=== PATIENT | female | born 1960 | race African-American/Black ===

== ENCOUNTER 2025-04-15 11:45 | Emergency (ER) | payer MEDICARE, MEDICAID, SELFPAY ==
--- NOTE | 2025-04-15 | ECG_ITS ---
Test Reason : DYSPNEA Blood Pressure : */* mmHG Vent. Rate : 83 BPM Atrial Rate : 83 BPM P-R Int : 132 ms QRS Dur : 80 ms QT Int : 360 ms P-R-T Axes : 17 -17 12 degrees QTcB Int : 423 ms Normal sinus rhythm Possible Anterior infarct , age undetermined Abnormal ECG No previous ECGs available Referred By: Generic ED Physician Electronically Signed By: Harvey Dumont
--- NOTE | ~2025-04-15 | CT_ITS ---
CLINICAL HISTORY: Breast CA, chemotherapy, dyspnea --- Additional Notes or Special Instructions: R O PE, pneumonia CT angiography of the chest with IV contrast. 3D/MIP post processing reconstructions were performed. COMPARISON: None provided. FINDINGS: There are no intraluminal filling defects to suggest pulmonary embolism. No evidence of right heart strain. Visualized thyroid is unremarkable. No supraclavicular or axillary lymphadenopathy. Ascending aorta and main pulmonary artery are normal in caliber. No pericardial effusion. Distal esophageal wall thickening.No mediastinal or hilar lymphadenopathy. No pleural effusion. Minimal atelectasis along the posterior lower lobes Trachea and central airways are clear. No significant bronchial wall thickening. No bronchiectasis. Left upper lobe 4 mm pulmonary nodule (series 7, image 49). Right middle lobe 3 mm pulmonary nodule (series 7, image 50). Right upper lobe subpleural 2 mm pulmonary nodule (series 7, image 21). Visualized portions of the upper abdomen are unremarkable. Flowing marginal osteophytes present throughout the thoracic spine. No acute fracture or suspicious bone lesion IMPRESSION: 1. No evidence of pulmonary embolism. 2. No acute intrathoracic findings. No evidence of pneumonia. 3. Diffuse thickening of the mucosa of the esophagus can be seen with esophagitis and gastroesophageal reflux disease. 4. Bilateral pulmonary nodules measuring up to 4 mm in the left upper lobe. Recommend comparison prior imaging if available. This document has been electronically signed by: Jay Jay Yu MD on 04/15/2025 15:42:00
[2025-04-15 11:50] VITALS: BP 108/64; PULSE 90; O2SAT 98
[2025-04-15 12:10] VITALS: BP 112/70; PULSE 86; RESP 24; TEMP 36.6; O2SAT 98; BMI 30.2
[2025-04-15 12:14] LABS: Glucose, Whole Blood 117 mg/dL (60-115)
--- NOTE | 2025-04-15 12:30 | ED.SOB ---
HPI - SOB/Dyspnea General Chief Complaint: Dyspnea Stated Complaint: SOB Time Seen by Provider: 04/15/25 12:30 Source: patient Mode of arrival: EMS Limitations: no limitations History of Present Illness ED Provider: Dr. 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 Patient states that she became short of breath 45 minutes prior to coming to the emergency department. She states she has trouble catching her breath. She denied fever, chills, cough, chest pain, nausea, vomiting, diarrhea, bloody stools, black stools or frequency. She states this is her 1st episode of shortness of breath. I did review a hematology oncology note from [facility] dated 04/02/2025. Diagnosis: Left 03:30 pT1b N0 grade 2 IDC with grade 3 DCIS, ER negative, ME negative, HER2 2+, fish ratio 1.2, copy #4.05 Partial mastectomy Treatment docetaxel and cyclophosphamide q.2 weeks Related Data Allergies Allergy/AdvReac Type Severity Reaction Status Date / Time No Known Allergies Allergy Verified 04/15/25 12:15 Review of Systems Review of Systems: Yes all other systems are reviewed and are negative [facility] Past Medical History [facility] Narrative: Social history: She does smoke cigarettes. She denies alcohol and drug use. Social History Social History Advance Directives: No Advance Directives Information Provided: Yes Physical Exam Vital Signs: Vital Signs: Last Vital Signs Temp 97.9 F 04/15/25 12:10 Pulse 86 04/15/25 12:10 Resp 24 H 04/15/25 12:10 BP 112/70 04/15/25 12:10 Pulse Ox 98 04/15/25 12:10 O2 Del Method Room Air 04/15/25 12:10 BMI result Body Mass Index 30.2 Vital signs revealed an elevated respiratory rate of 24 otherwise unremarkable Exam: General: Awake, tearful, appears dyspneic, answers questions appropriately Head: Normocephalic, atraumatic EENT: PERRL, sclera and conjunctiva are normal, mouth with no erythema or exudates Neck: Supple, no adenopathy Lung: breath sounds symmetric, no wheezing, no rales and no rhonchi Chest: symmetric movement, nontender Heart: regular rate and rhythm, normal S1, S2 no murmurs or rubs Abdomen: soft, non-tender, nondistended, normal bowel sounds Back: no vertebral tenderness, no CVAT Extremities: no deformities, moves all extremities symmetrically, no edema Neuro: Awake, alert, oriented, normal speech, cranial nerves 2-12 intact, moves all extremities symmetrically Psych: Pleasant, cooperative Medications Administered Discontinued Medications Generic Name Dose Route Start Last Admin Trade Name Freq PRN Reason Stop Dose Admin Sodium Chloride 1,000 mls @ 999 mls/hr 04/15/25 13:25 04/15/25 13:27 Ns IV 04/15/25 14:25 999 mls/hr .Q1H1M STA Administration Sodium Chloride 1,000 mls @ 999 mls/hr 04/15/25 13:45 04/15/25 13:37 Ns IV 04/15/25 14:45 999 mls/hr .Q1H1M VERA Administration Piperacillin Sod/Tazobactam 100 mls @ 200 mls/hr 04/15/25 13:41 04/15/25 14:34 Sod 4.5 gm/ Sodium Chloride IV 04/15/25 14:10 Infused ONCE ONE Infusion Iohexol 100 ml 04/15/25 14:02 04/15/25 14:02 Iohexol 350 Mg/Ml 100 Ml Infus..Btl IV 04/15/25 14:03 65 ml ONCE ONE Administration Morphine Sulfate 2 mg 04/15/25 12:39 04/15/25 12:45 Morphine Sulfate 2 Mg/Ml Cartridge IVPUSH 04/15/25 12:40 2 mg ONCE ONE Administration Protocol Ondansetron HCl 4 mg 04/15/25 12:39 04/15/25 12:50 Ondansetron Hcl 4 Mg/2 Ml Vial IVPUSH 04/15/25 12:40 4 mg ONCE ONE Administration Medical Decision Making Medical Decision Making MDM Narrative: 64-year-old female with a history of diabetes mellitus, hyperlipidemia, hyperthyroidism, 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 Patient states that she became short of breath 45 minutes prior to coming to the emergency department. She states she has trouble catching her breath. She denied fever, chills, cough, chest pain, nausea, vomiting, diarrhea, bloody stools, black stools or frequency. She states this is her 1st episode of shortness of breath. Vital signs revealed an elevated respiratory rate otherwise unremarkable. Patient does appear to be dyspneic but her exam is otherwise normal. 13:39 Differential diagnosis: ?Includes but is not limited to pulmonary embolism, pneumonia, cardiomyopathy, congestive heart failure,, leukopenia, anemia, electrolyte abnormalities Course: 13:39 Patient's dyspnea was treated with morphine 2 mg IV and the patient's dyspnea did improve with this treatment.. My independent interpretation patient's laboratory evaluation is as follows: WBC elevated 32,700. Normocytic anemia with an H&H of 10.5 and 30.9. Chloride elevated 112, bicarb low 18. Glucose elevated 124. Alk-phos elevated 124. TSH was normal. Lactic acid elevated 2.2. VBG revealed a pH of 7.50, pCO2 of 31, bicarb 17 consistent with a respiratory alkalosis most likely secondary to the patient's elevated respiratory rate. Given the high WBC count, I will make the patient had code sepsis and the patient was treated with Zosyn 4.5 g IV. It is possible that the elevated WBC may be related to her malignancy or Neupogen injection. She also was ordered to get normal saline 1 L IV. Patient was made a sepsis alert. Patient's dyspnea did improve with morphine 2 mg IV. 16:30 CT pulmonary angiogram PE protocol revealed no PE and no abnormalities in the patient's lung to describe her dyspnea. Patient is feeling significantly better in his back to her baseline. Given the VBG results I suspect that the patient had hyperventilation syndrome and I did discuss this with the patient. I do not think that the patient has an infectious and I suspect that the elevated WBC was due to the Neupogen that she received for her chemotherapy. I did discuss hyperventilation syndrome, anxiety and depression with the patient and I told her that she should discuss getting a therapist with her oncologist to help her cope with her cancer diagnosis in the rest of her chemotherapy treatment. Patient was given printed and verbal instructions and discharged home. Lab Data 04/15/25 13:15 04/15/25 12:25 Labs: Lab Results 04/15/25 04/15/25 04/15/25 Range/Units 12:10 12:24 12:25 WBC (4.8-10.8) X10*3/uL RBC (4.20-5.50) X10*6/uL Hgb (12.0-16.0) g/dl Hct (37.0-47.0) % MCV (80.0-98.0) fL MCH (27.0-33.0) pg MCHC (31.0-35.0) g/dl RDW (11.0-16.0) % Plt Count (160-400) X10*3/uL MPV (9.4-12.3) fL Immature Gran % (Auto) Neut % (Auto) Lymph % (Auto) [place] % (Auto) Eos % (Auto) Baso % (Auto) Lymph # (Auto) [place] # (Auto) Eos # (Auto) Baso # (Auto) Abs Immat Gran (auto) Absolute Neuts (auto) Absolute Nucleated RBC (0.0-0.012) X10*3/uL Nucleated RBC % (auto) (0.0-0.2) /100WBC Neutrophils % (Manual) (45-73) % Band Neutrophils % (3-5) % Lymphocytes % (Manual) (20-40) % Monocytes % (Manual) (2-11) % Metamyelocytes % % Abs Neuts (Manual) (2.0-8.3) X10*3/uL Lymphocytes # (Manual) (1.2-4.9) X10*3/uL Monocytes # (Manual) (0.1-1.2) X10*3/uL Metamyelocytes # X10*3/uL Toxic Granulation Toxic Vacuolation Platelet Estimate (NORMAL) Plt Morphology Comment RBC Morphology Polychromasia /OIF Ovalocytes /OIF PT (10.9-12.4) SEC INR (0.9-1.1) APTT (26.7-34.1) SEC VBG pH (7.32-7.43) VBG pCO2 mmHg VBG pO2 mmHg VBG HCO3 (22-26) mmol/L VBG O2 Saturation % VBG Base Excess mmol/L Sodium 141 (135-145) mmol/L Potassium 3.3 (3.3-5.1) mmol/L Chloride 112 H (96-108) mmol/L Carbon Dioxide 18 L (22-29) mmol/L Anion Gap 14 (12-20) BUN 8 L (9-16) mg/dL Creatinine 0.91 (0.5-1.4) mg/dL Estim Creat Clear Calc 55.3 Estimated GFR > 60 POC Glucose 117 H (60-115) mg/dL Random Glucose 124 H (60-115) mg/dL Lactic Acid 2.2 H* (0.5-2.0) mmol/L Lactic Acid F/U @ 2Hr (0.5-2.0) mmol/L Calcium 8.7 (8.4-10.2) mg/dL Magnesium 1.8 (1.6-2.6) mg/dL Total Bilirubin 0.3 (0.0-1.0) mg/dL Direct Bilirubin 0.2 (0.0-0.5) mg/dL AST 16 (5-31) U/L ALT 11 (0-31) U/L Alkaline Phosphatase 174 H (39-117) U/L Total Protein 6.6 (6.5-8.0) g/dL Albumin 4.1 (3.5-5.0) g/dL TSH 0.96 (0.32-4.0) uIU/mL COVID-19 (KEILA) (Negative) COVID-19 Clin Com Influenza Type A (SHERMAN) (Negative) Influenza Type B (SHERMAN) (Negative) Influenza A & B Note 04/15/25 04/15/25 04/15/25 Range/Units 12:37 13:15 16:08 WBC 32.7 H* (4.8-10.8) X10*3/uL RBC 3.66 L (4.20-5.50) X10*6/uL Hgb 10.5 L (12.0-16.0) g/dl Hct 30.9 L (37.0-47.0) % MCV 84.4 (80.0-98.0) fL MCH 28.7 (27.0-33.0) pg MCHC 34.0 (31.0-35.0) g/dl RDW 18.3 H (11.0-16.0) % Plt Count 220 (160-400) X10*3/uL MPV 9.9 (9.4-12.3) fL Immature Gran % (Auto) Cancelled Neut % (Auto) Cancelled Lymph % (Auto) Cancelled [place] % (Auto) Cancelled Eos % (Auto) Cancelled Baso % (Auto) Cancelled Lymph # (Auto) Cancelled [place] # (Auto) Cancelled Eos # (Auto) Cancelled Baso # (Auto) Cancelled Abs Immat Gran (auto) Cancelled Absolute Neuts (auto) Cancelled Absolute Nucleated RBC 0.050 H (0.0-0.012) X10*3/uL Nucleated RBC % (auto) 0.2 (0.0-0.2) /100WBC Neutrophils % (Manual) 90 H (45-73) % Band Neutrophils % 0 L (3-5) % Lymphocytes % (Manual) 8 L (20-40) % Monocytes % (Manual) 1 L (2-11) % Metamyelocytes % 1 % Abs Neuts (Manual) 29.4 H (2.0-8.3) X10*3/uL Lymphocytes # (Manual) 2.6 (1.2-4.9) X10*3/uL Monocytes # (Manual) 0.3 (0.1-1.2) X10*3/uL Metamyelocytes # 0.3 X10*3/uL Toxic Granulation PRESENT Toxic Vacuolation PRESENT Platelet Estimate NORMAL (NORMAL) Plt Morphology Comment NORMAL RBC Morphology NOTED Polychromasia 1+ (0-2) /OIF Ovalocytes 1+ (5-14) /OIF PT 12.1 (10.9-12.4) SEC INR 1.1 (0.9-1.1) APTT 26.5 L (26.7-34.1) SEC VBG pH 7.50 H (7.32-7.43) VBG pCO2 21 mmHg VBG pO2 52 mmHg VBG HCO3 17 L (22-26) mmol/L VBG O2 Saturation 81.0 % VBG Base Excess -3.9 mmol/L Sodium (135-145) mmol/L Potassium (3.3-5.1) mmol/L Chloride (96-108) mmol/L Carbon Dioxide (22-29) mmol/L Anion Gap (12-20) BUN (9-16) mg/dL Creatinine (0.5-1.4) mg/dL Estim Creat Clear Calc Estimated GFR POC Glucose (60-115) mg/dL Random Glucose (60-115) mg/dL Lactic Acid (0.5-2.0) mmol/L Lactic Acid F/U @ 2Hr 1.7 (0.5-2.0) mmol/L Calcium (8.4-10.2) mg/dL Magnesium (1.6-2.6) mg/dL Total Bilirubin (0.0-1.0) mg/dL Direct Bilirubin (0.0-0.5) mg/dL AST (5-31) U/L ALT (0-31) U/L Alkaline Phosphatase (39-117) U/L Total Protein (6.5-8.0) g/dL Albumin (3.5-5.0) g/dL TSH (0.32-4.0) uIU/mL COVID-19 (KEILA) Negative (Negative) COVID-19 Clin Com See Note Influenza Type A (SHERMAN) Negative (Negative) Influenza Type B (SHERMAN) Negative (Negative) Influenza A & B Note See Note Radiology Impression Discussion of test interpretation with radiology: I have reviewed the radiologist's reading. Radiologist Impression: CT angiography of the chest with IV contrast. 3D/MIP post processing reconstructions were performed. COMPARISON: None provided. FINDINGS: There are no intraluminal filling defects to suggest pulmonary embolism. No evidence of right heart strain. Visualized thyroid is unremarkable. No supraclavicular or axillary lymphadenopathy. Ascending aorta and main pulmonary artery are normal in caliber. No pericardial effusion. Distal esophageal wall thickening.No mediastinal or hilar lymphadenopathy. No pleural effusion. Minimal atelectasis along the posterior lower lobes Trachea and central airways are clear. No significant bronchial wall thickening. No bronchiectasis. Left upper lobe 4 mm pulmonary nodule (series 7, image 49). Right middle lobe 3 mm pulmonary nodule (series 7, image 50). Right upper lobe subpleural 2 mm pulmonary nodule (series 7, image 21). Visualized portions of the upper abdomen are unremarkable. Flowing marginal osteophytes present throughout the thoracic spine. No acute fracture or suspicious bone lesion IMPRESSION: 1. No evidence of pulmonary embolism. 2. No acute intrathoracic findings. No evidence of pneumonia. 3. Diffuse thickening of the mucosa of the esophagus can be seen with esophagitis and gastroesophageal reflux disease. 4. Bilateral pulmonary nodules measuring up to 4 mm in the left upper lobe. Recommend comparison prior imaging if available. This document has been electronically signed by: Jay Jay Yu MD on 04/15/2025 15:42:00 Dictated By: Jay Jay Yu MD Critical Care Time Critical Care Time Critical Care Time: Yes Total Critical Care Time: 45 Attestation: Critical Care: The patient was critically ill with a high probability of imminent or life threatening deterioration. I spent greater than 30 minutes of discontinuous time evaluating the patient,delivering critical care at the bedside, discussing and evaluating pertinent data with consultants. Critical care time does not include time spent performing separately billable procedures or teaching. Total time spent performing critical care was 45 minutes. Discharge Plan Discharge Clinical Impression: Acute dyspnea, Acute hyperventilation syndrome Patient Disposition: Home, Self-Care Instructions: Hyperventilation (ED) Additional Instructions: Your blood work did reveal an elevated white blood cell count of 32,700. At this time I think that this was due to the Neupogen injection that you get after your chemotherapy to keep your white blood cell count high. Your CT pulmonary angiogram of your chest did not reveal any evidence for pneumonia or blood clots to your lungs which is reassuring. Your venous blood gas he is consistent with hyperventilation syndrome in your symptoms improved after we gave you IV morphine. Continue taking your medications as prescribed by your providers. 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 Follow-up with your doctor in 2 days. Please return to the emergency department if your symptoms get worse or if you develop any symptoms that are concerning to you. Print Language: Gambian
[2025-04-15 12:46] LABS: VBG HCO3 17 mmol/L (22-26); VBG O2 % Saturation 81.0 %
[2025-04-15 12:57] LABS: Venous Blood Gas Refer to POC result
--- OUTSIDE RECORDS SUMMARY | 2025-04-15 13:09 | XMS_ITS | Clinical Summary ---
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 Role Phone Unavailable Primary Care Provider Unavailabl e Social History Tobacco Use Types Packs/Day Years Used Date Smoking Tobacco: Never Assessed Comments Unknown Sex and Gender Information Value Date Recorded Sex Assigned at Not on file Legal Sex Female 8:04 PM EST Gender Identity Not on file Sexual Orientation Not on file Plan of Treatment Health Maintenance Due Date Last Done Comments Breast Cancer Screening 1960 COVID-19 Vaccine (#1) 11/03/1963 DTaP,Tdap,and Td Vaccines (1 - Tdap) 1977 Pneumococcal Vaccine: 50+ Ye ars (1 of 1 - PCV) 2008 Zoster Vaccines (1 of 2) 2008 Colorectal Cancer Screening: Colonoscopy 08/17/2023 Hepatitis C Screening 08/17/2023 Osteoporosis Screening (Bone Density Screening) 08/17/2023 Social Influencers of Health Screening 08/17/2023 Falls Risk Assessment 11/03/2023 Depression Screening 07/19/2024 Influenza Vaccine (#1) 2025 RSV Immunization Adult Patie nts (1 - 1-dose 75+ series) 2033 HIB Vaccines Aged Out No longer eligi ble based on patient's age to complete this topic HPV Vaccines Aged Out No longer eligi ble based on patient's age to complete this topic Hepatitis A Vaccines Aged Out No long er eligible based on patient's age to complete this topic Hepatitis B Vaccines Aged Out No long er eligible based on patient's age to complete this topic IPV Vaccines Aged Out No longer eligi ble based on patient's age to complete this topic MMR Vaccines Aged Out No longer eligi ble based on patient's age to complete this topic Meningococcal ACWY Vaccine Aged Out N o longer eligible based on patient's age to complete this topic Meningococcal B Vaccine Aged Out No l onger eligible based on patient's age to complete this topic RSV Immunization Patients Un pushpa 20 months Aged Out No longer eligible b ased on patient's age to complete this topic Varicella Vaccines Aged Out No longer eligible based on patient's age to complete this topic Advance Directives Documents on File Type Date Recorded Patient Warehouse Technician Expl anation Health Care Decision (hx) 12/30/2019 AD BERRIOS DIRECTIVE Health Care Decision (hx) 12/30/2019 AD BERRIOS DIRECTIVE Health Care Decision (hx) 12/30/2019 AD BERRIOS DIRECTIVE Health Care Decision (hx) 12/30/2019 AD BERRIOS DIRECTIVE Health Care Decision (hx) 12/23/2019 AD BERRIOS DIRECTIVE Health Care Decision (hx) 12/23/2019 AD BERRIOS DIRECTIVE Health Care Decision (hx) 12/23/2019 AD BERRIOS DIRECTIVE Health Care Decision (hx) 12/23/2019 AD BERRIOS DIRECTIVE
[2025-04-15 13:16] LABS: Alanine Aminotransferase 11 U/L (0-31); Albumin Level 4.1 g/dL (3.5-5.0); Alkaline Phosphatase 174 U/L (39-117); Anion Gap 14 (12-20); Aspartate Amino Transferase 16 U/L (5-31); Blood Urea Nitrogen 8 mg/dL (9-16); Calcium 8.7 mg/dL (8.4-10.2); Carbon Dioxide 18 mmol/L (22-29); Chloride 112 mmol/L (96-108); Creatinine Clr Calc Pharmacy 55.3; Estimated Glomerular Filt Rate > 60; Magnesium 1.8 mg/dL (1.6-2.6); Potassium 3.3 mmol/L (3.3-5.1); Sodium 141 mmol/L (135-145); Total Protein 6.6 g/dL (6.5-8.0)
[2025-04-15 13:25] LABS: Hematocrit 30.9 % (37.0-47.0); Hemoglobin 10.5 g/dl (12.0-16.0); Mean Corpuscular HGB Conc 34.0 g/dl (31.0-35.0); Mean Corpuscular Hemoglobin 28.7 pg (27.0-33.0); Mean Corpuscular Volume 84.4 fL (80.0-98.0); NRBC Abs Auto 0.050 X10*3/uL (0.0-0.012); NRBC Pct Auto 0.2 /100WBC (0.0-0.2); Platelet Count 220 X10*3/uL (160-400); Red Blood Count 3.66 X10*6/uL (4.20-5.50)
[2025-04-15 13:27] LABS: INTERNATIONAL NORM RATIO 1.1 (0.9-1.1); Prothrombin Time 12.1 SEC (10.9-12.4)
[2025-04-15 13:29] LABS: White Blood Count 32.7 X10*3/uL (4.8-10.8)
[2025-04-15 13:30] LABS: Partial Thromboplastin Time 26.5 SEC (26.7-34.1)
[2025-04-15 13:41] LABS: COVID-19 Test Negative (Negative); IDNOW Serial# 55D5AD1C; IDNOW Serial# 58CA691E; Influenza B2 Negative (Negative)
[2025-04-15 13:44] LABS: Band Neutrophils Percent 0 % (3-5); Lymphocytes Absolute Manual 2.6 X10*3/uL (1.2-4.9); Lymphocytes Percent Manual 8 % (20-40); Metamyelocytes Absolute 0.3 X10*3/uL; Metamyelocytes Percent 1 %; Monocytes Absolute Manual 0.3 X10*3/uL (0.1-1.2); Monocytes Percent Manual 1 % (2-11); Neutrophils Absolute Manual 29.4 X10*3/uL (2.0-8.3); Neutrophils Percent Manual 90 % (45-73)
[2025-04-15 13:46] LABS: Ovalocytes 1+ (5-14) /OIF; Polychromasia 1+ (0-2) /OIF; RBC Morphology NOTED; Toxic Granulation PRESENT
[2025-04-15 13:47] LABS: Toxic Vacuolation PRESENT
[2025-04-15] MEDS: iohexoL 350 MG/ML 100 ML INFUS..BTL IV (14:02)
--- NOTE | 2025-04-15 14:04 | PC.NURSE ---
Pt to CT for CTA, ivf's paused
[2025-04-15 14:39] LABS: Reflex Lactate? Lactic Acid Added
[2025-04-15 16:11] VITALS: BP 129/63; PULSE 88; RESP 20; O2SAT 96
[2025-04-15 16:25] VITALS: BP 102/61; PULSE 88; RESP 20; O2SAT 96
[2025-04-15 16:25] LABS: ~Lactic Acid-LAB USE ONLY 1.7 mmol/L (0.5-2.0)
[2025-04-15 16:40] VITALS: BP 112/70; PULSE 86; RESP 24; TEMP 36.6; O2SAT 98
== END 2025-04-15 17:08 | disposition home or self-care (01) ==
PROVIDERS: Emergency Provider Emergency Medicine Emergency Medical Services; PCP Pediatrics
DX: R06.00 Dyspnea, unspecified (principal); F45.8 Other somatoform disorders; R06.02 Shortness of breath; E11.9 Type 2 diabetes mellitus without complications; E78.5 Hyperlipidemia, unspecified; C50.912 Malignant neoplasm of unspecified site of left female breast; Z03.818 Encounter for observation for suspected exposure to other biological agents ruled out
CPT/HCPCS: 36415; 71275; 80048; 80076; 82803; 82947; 83605; 83735; 84443; 85007; 85025; 85027; 85610; 85730; 87040; 87502; 87635; 93005; 96361; 96374; 96375; 99284; 99285; J2270; J2405; J2543; Q9967

== ENCOUNTER → 2025-04-15 12:19 | Outpatient (BNV) | payer MEDICARE, MEDICAID, SELFPAY | PROVIDERS: Emergency Provider Emergency Medicine Emergency Medical Services; PCP Pediatrics; Visit Provider Internal Medicine Cardiovascular Disease | DX: R94.31 Abnormal electrocardiogram [ECG] [EKG] (principal); R06.00 Dyspnea, unspecified | CPT/HCPCS: 93010 ==

== ENCOUNTER → 2025-04-15 12:39 | Outpatient (BNV) | payer MEDICARE, MEDICAID, SELFPAY | PROVIDERS: Emergency Provider Emergency Medicine Emergency Medical Services; PCP Pediatrics; Visit Provider Radiology Diagnostic Radiology | DX: R91.8 Other nonspecific abnormal finding of lung field (principal); K22.89 Other specified disease of esophagus | CPT/HCPCS: 71275 ==